=== PATIENT | male | born 1990 | race African-American/Black ===

== ENCOUNTER 2018-11-20 13:08 | Emergency (ER) | payer SELFPAY ==
[~2018-11-20] VITALS: Ht 180.3 cm; Wt 70.5 kg
[2018-11-20 13:12] VITALS: BP 136/89; Ht 180.3 cm; Wt 70.5 kg
--- NOTE | 2018-11-20 14:10 | NUR ---
DR. DOVE NOTIFIED AND REVIEWED PT'S BEHAVIOR AND ASSESSMENT RESULTS. PT IS A LOW RISK PER DR. DOVE. DR. DOVE STATED TO GIVE RESOURCES TO PT AT TIME OF DISCHARGE. NO FURTHER ORDERS AT THIS TIME. RESOURCES REVIEWED WITH PT AND HE VERBALIZIED UNDERSTANDING.
[2018-11-21] MEDS ORDERED: HYDROCODONE-A1 UDTA2 PO (17:31)
[2018-11-21] MEDS ORDERED: KEFLEX500 MG PO (17:31)
== END 2018-11-20 14:00 | disposition home or self-care (01) ==
LOC: D.ER 13:08
DX: S62.307A Unspecified fracture of fifth metacarpal bone, left hand, initial encounter for closed fracture (principal); X58.XXXA Exposure to other specified factors, initial encounter

== ENCOUNTER 2018-11-21 14:19 | Day surgery (SDC) | payer SELFPAY ==
[~2018-11-21] VITALS: Ht 180.3 cm; Wt 70.3 kg
[2018-11-21 14:46] VITALS: BP 114/60; Ht 180.3 cm; Wt 70.3 kg
[2018-11-21] MEDS ORDERED: HYDROCODONE-A1 UDTA2 PO (17:31)
[2018-11-21] MEDS ORDERED: KEFLEX500 MG PO (17:31)
--- NOTE | 2018-11-21 21:15 | NUR ---
PT ARRIVED ON FLOOR FROM RECOVERY AROUND 1999.HE WAS VERY IMPATIENT TO LEAVE. CRITERIA FOR DISCHARGE WERE EXPLAINED TO HIM. HE WAS GIVEN A SPRITE AND SOME JELLO WHICH HE TOOK WITHOUT NAUSEA. WHEN HE HAD GOTTEN UP TO VOID WITH NO PROBLEM WE D/C'D HIS IV SITE AND TOOK OFF THE VITAL SIGN MONITOR. AT THIS TIME HIS HAND WAS CHECKED AND NO PROBLEMS NOTED. INSTRUCTIONS WERE GIVEN TO HIM AND EXPLAINED. A RX FOR NORCO AND KEFLEX WAS ALSO GIVEN TO HIM TO FILL. HIS FRIEND STATED THEY WERE GOING STRAIGHT TO THE PHARM. AFTER DRESSING WE BROUGHT A WHEELCHAIR TO RIDE OUT IN BUT THE PATIENT DECLINED. HIS FRIEND WALLKED HIM OUT TO A PRIVATE CAR.
--- NOTE | 2018-11-25 10:40 | OP ---
PATIENT NAME: DONIS JOSEPH MEDICAL RECORD: [id number] :89 LOCATION:[facility] AD[facility]ION DATE: SURGEON: MICHAEL RANDHAWA DO DATE OF OPERATION: 11/21/2018 PROCEDURE PERFORMED: Right fifth metacarpal shaft open reduction and internal fixation. PREOPERATIVE DIAGNOSIS: Right fifth metacarpal shaft closed and displaced fracture. POSTOPERATIVE DIAGNOSIS: Right fifth metacarpal shaft closed and displaced fracture. INDICATIONS: Mr. Joseph is a 28-year-old male that struck something with his right hand and had a displaced right fifth metacarpal shaft fracture about the distal third I saw him and he was seen in the ER and sent to my clinic. I saw that his metacarpal shaft was angulated more than 45 degrees and told him this was out of adequate alignment that he would have extensor lag and continued pain. He was wanting something done. He was aware of the risks including infection due to his HIV positive status and he does not know what his CD4 count was, he would be at high risk for infection, bleeding, damage to nerves and vessels, need for further surgery, failure of hardware, malrotation, malunion, and nonunion. He was okay with those risks and he signed the consent. SURGEON: Michael Randhawa DO DESCRIPTION OF THE PROCEDURE: The patient was taken to the operative suite and laid in the supine position and a general anesthetic, LMA was placed, given 2 grams of Ancef and the right upper extremity was then prepped and draped in sterile fashion. Timeout was performed. Everybody was in agreement as to the correct side, site, patient and procedure. Incision began after the right upper extremity was exsanguinated with an Esmarch and tourniquet was inflated to 250 mmHg up for 37 minutes. The incision began over the fifth metacarpal distal shaft. Careful dissection was made down to the metacarpal shaft. Reduction was made in the plate, 1.5 mm Medart[employer] plate was put on, fixing the plate to the shaft and getting nice reduction. Screws were put in adjacent to the fracture first and then distal to it, locking screws were put in 3 of the holes and cortical screw in one of them, wasting one 8 mm screw. Once that was fixed and confirmed to be in good position on x-ray, AP and lateral, and then the screws were not too long and the tourniquet was let down and any bleeding was coagulated at that time with a pickup and a Bovie. The ulnar nerve block was then performed with 10 mL of 0.5% Marcaine with epinephrine about 5-8 cm distal to the ulnar styloid aspirating ensuring that it was not going into an order. The site was then closed with 4-0 Monocryl in inverted interrupted fashion. Steri-Strips, Adaptic, 4 x 4's, cast padding, and an ulnar gutter splint were placed on the patient and secured with Radu wrap. He was then awakened and taken to the recovery in stable condition. BLOOD LOSS: Minimal. COMPLICATIONS: None. OPERATIVE REPORT [id number] DONIS JOSEPH TRANSINT:[id number] Voice Confirmation ID: [id number] DOCUMENT ID: [id number] MICHAEL RANDHAWA DO at 1040 CC: [id number] DICTATION DATE: 11/21/18 1855 [employer]: 11/22/18 [facility] 11/21/18 [facility] [address] [place] [address]
== END 2018-11-21 21:15 | disposition home or self-care (01) ==
LOC: D.OPS 14:19 → D.MS 19:29 → D.OPS 21:15
PROVIDERS: ATTEND Orthopaedic Surgery
DX: S62.326A Displaced fracture of shaft of fifth metacarpal bone, right hand, initial encounter for closed fracture (principal); X58.XXXA Exposure to other specified factors, initial encounter

== ENCOUNTER 2018-12-11 11:01 | Emergency (ER) | payer MEDICAID ==
[~2018-12-11] VITALS: Ht 180.3 cm; Wt 70.5 kg
[~2018-12-11 11:01] MED LIST: HYDROCODONE-A1 UDTA2 PO; KEFLEX500 MG PO
[2018-12-11 11:12] VITALS: Ht 180.3 cm; Wt 70.5 kg
[2018-12-11 11:37] LABS: BASOPHILS 0 % (0-2); CALC OSMOLALITY 276 mosm/kg (275-300); CALCIUM 9.2 mg/dL (8.5-10.1); CARBON DIOXIDE 29.7 mmol/L (21.0-32.0); CHLORIDE - SERUM 103 mmol/L (98-107); CREATININE - SERUM 0.7 mg/dL (0.6-1.3); EOSINOPHILS 0.5 % (0-7); GLUCOSE 93 mg/dL (74-106); HEMOGLOBIN 13.4 g/dL (13.5-17.5); LYMPHOCYTES 29.3 % (15-50); MCHC 33.5 g/dL (31.0-37.0); MCV 83.7 fL (80.0-100.0); MEAN PLATELET VOLUME 10.7 fL (7.4-10.4); MONOCYTES 6.3 % (2-11); NEUTROPHILS 63.9 % (40-80); PLATELET COUNT 152 10x3/uL (130-400); POTASSIUM - SERUM 3.8 mmol/L (3.5-5.1); RBC 4.78 10x6/uL (4.20-6.10); RDW 14.9 % (11.5-14.5); SODIUM 139 mmol/L (136-145); UREA NITROGEN 10 mg/dL (7-18); WBC 3.8 10x3/uL (4.8-10.8); eGFR NON AFRICAN AMERICAN > 90 mL/min (90-120)
[2018-12-11 11:41] LABS: APPEARANCE CLEAR (CLEAR); BILIRUBIN NEGATIVE (NEGATIVE); COLOR YELLOW (YELLOW); GLUCOSE NEGATIVE (NEGATIVE); KETONE NEGATIVE (NEGATIVE); NITRITE NEGATIVE (NEGATIVE); PROTEIN NEGATIVE (NEGATIVE); SPECIFIC GRAVITY 1.015 (1.005-1.020); UROBILINOGEN NORMAL (NORMAL)
[2018-12-11 11:42] LABS: ALBUMIN 4.1 g/dL (3.4-5.0); ALKALINE PHOSPHATASE 49 U/L (46-116); ALT (SGPT) 11 U/L (10-68); BILIRUBIN - TOTAL 0.44 mg/dL (0.2-1.3); LIPASE 107 U/L (73-393); PROTEIN - SERUM 9.3 g/dL (6.4-8.2)
[2018-12-11] MEDS ORDERED: MIRALAX17 GM PO (14:08)
[2018-12-11] MEDS ORDERED: SENNA S TABLET1 TAB PO (14:08)
[2018-12-11 14:21] VITALS: BP 130/77
== END 2018-12-11 14:22 | disposition home or self-care (01) ==
LOC: D.ER 11:01
PROVIDERS: Family Medicine
DX: K59.00 Constipation, unspecified (principal)

== ENCOUNTER 2019-01-06 20:31 | Emergency (ER) | payer MEDICAID ==
[~2019-01-06] VITALS: Ht 180.3 cm; Wt 68.2 kg
[~2019-01-06 20:31] MED LIST changes: +MIRALAX17 GM PO; +SENNA S TABLET1 TAB PO
[2019-01-06 20:52] VITALS: Ht 180.3 cm; Wt 68.2 kg
[2019-01-06 22:22] LABS: BASOPHILS 0 % (0-2); EOSINOPHILS 0.3 % (0-7); HEMATOCRIT 36.1 % (42.0-54.0); HEMOGLOBIN 12.1 g/dL (13.5-17.5); IMMATURE GRANULOCYTES 0.1 % (0-5); LYMPHOCYTES 19.9 % (15-50); MCHC 33.5 g/dL (31.0-37.0); MCV 83.6 fL (80.0-100.0); MEAN PLATELET VOLUME 10.1 fL (7.4-10.4); MONOCYTES 7.7 % (2-11); PLATELET COUNT 151 10x3/uL (130-400); RBC 4.32 10x6/uL (4.20-6.10); RDW 14.7 % (11.5-14.5); WBC 7.8 10x3/uL (4.8-10.8)
[2019-01-06 22:30] LABS: CALC OSMOLALITY 277 mosm/kg (275-300); CALCIUM 8.9 mg/dL (8.5-10.1); CARBON DIOXIDE 28.2 mmol/L (21.0-32.0); CHLORIDE - SERUM 105 mmol/L (98-107); CREATININE - SERUM 0.7 mg/dL (0.6-1.3); GLUCOSE 98 mg/dL (74-106); POTASSIUM - SERUM 3.7 mmol/L (3.5-5.1); SODIUM 140 mmol/L (136-145); UREA NITROGEN 11 mg/dL (7-18); eGFR NON AFRICAN AMERICAN > 90 mL/min (90-120)
[2019-01-06 22:46] LABS: ALBUMIN 3.5 g/dL (3.4-5.0); ALKALINE PHOSPHATASE 50 U/L (46-116); ALT (SGPT) 12 U/L (10-68); BILIRUBIN - TOTAL 0.67 mg/dL (0.2-1.3); PROTEIN - SERUM 8.7 g/dL (6.4-8.2)
[2019-01-06] MEDS ORDERED: VOLTAREN75 MG PO (23:27)
[2019-01-06] MEDS ORDERED: TYLENOL W/CODEI1 TAB PO (23:27)
[2019-01-06 23:35] VITALS: BP 118/71
[2019-01-08 16:08] LABS: BASOS 0 % (Not Estab.); CD4 - ABSOLUTE CD4 HELPER 525 /uL (359-1519); EOS 1 % (Not Estab.); HEMOGLOBIN 11.9 g/dL (13.0-17.7); LYMPHS 21 % (Not Estab.); LYMPHS (ABSOLUTE) 1.5 x10E3/uL (0.7-3.1); MCH 27.3 pg (26.6-33.0); MCHC 31.3 g/dL (31.5-35.7); MCV 87 fL (79-97); MONOCYTES 7 % (Not Estab.); MONOCYTES (ABSOLUTE) 0.5 x10E3/uL (0.1-0.9); NEUTROPHILS 71 % (Not Estab.); NEUTROPHILS (ABSOLUTE) 5.1 x10E3/uL (1.4-7.0); PLATELETS 183 x10E3/uL (150-450); RBC 4.36 x10E6/uL (4.14-5.80); RDW 14.7 % (12.3-15.4); WBC 7.2 x10E3/uL (3.4-10.8)
== END 2019-01-06 23:36 | disposition home or self-care (01) ==
LOC: D.ER 20:31
PROVIDERS: Family Medicine
DX: M76.9 Unspecified enthesopathy, lower limb, excluding foot (principal); M25.569 Pain in unspecified knee; B20 Human immunodeficiency virus [HIV] disease